=== PATIENT | male | born 1955 | race Caucasian/White ===

== ENCOUNTER 2021-03-15 12:03 | Day surgery (SDC) | payer OTHER ==
[2021-03-15] MEDS ORDERED: Midazolam 1 MG/ML 2 ML SDV ONE (12:23)
[2021-03-15] MEDS ORDERED: Propofol 200 MG/20 ML SDV ONE (12:23)
[2021-03-15] MEDS: Lactated Ringers 1,000 ML IV SCH (12:31)
== END 2021-03-15 14:35 | disposition home or self-care (01) ==
LOC: KA.SDS 12:03
PROVIDERS: ATTEND Family Medicine
DX: Z12.11 Encounter for screening for malignant neoplasm of colon (principal); D12.3 Benign neoplasm of transverse colon; K62.1 Rectal polyp; E78.00 Pure hypercholesterolemia, unspecified; F17.200 Nicotine dependence, unspecified, uncomplicated; Z98.890 Other specified postprocedural states; Z86.010 Personal history of colon polyps; Z79.899 Other long term (current) drug therapy
CPT/HCPCS: 00812; J2250; J2704; J7120